=== PATIENT | male | born 1975 | race Caucasian/White ===

== ENCOUNTER 2017-08-02 11:38 | Outpatient (CLI) ==
[2016-06-02 19:48] VITALS: BMI 27.7
== END 2017-08-02 11:39 | disposition home or self-care (01) ==
LOC: LAB 11:38
PROVIDERS: ATTEND Nurse Practitioner Family
DX: Z00.00 Encounter for general adult medical examination without abnormal findings (principal)
CPT/HCPCS: 36415; 80053; 80061; 84443; 85025

== ENCOUNTER 2017-08-12 09:09 | Outpatient (CLI) | payer OTHER ==
[2016-06-02 19:48] VITALS: BMI 27.7
--- NOTE | 2017-08-12 09:42 | CT ---
EXAM: CT cervical spine without contrast. HISTORY: Neck pain. COMPARISON: Radiograph 09/29/2011. MRI 10/06/2011. TECHNIQUE: Multiple axial images of the cervical spine were obtained without intravenous contrast. Images were reformatted in the sagittal and coronal planes. FINDINGS: There is normal curvature and alignment. Vertebral body and intervertebral disc heights a re maintained. No fracture or subluxation is seen. C1-2: Atlantoaxial interval narrowing with associated spurring. C2-3: Facet arthropathy with mild right neural foraminal narrowing. C3-4: Facet arthropathy with mild right neural foraminal narrowing. C4-5: Uncovertebral hypertrophy and facet arthropathy with mild to moderate right neural foraminal n arrowing. C5-6: Disc osteophyte formation, facet arthropathy and uncovertebral hypertrophy with flattening of the ventral thecal sac and mild to moderate right and moderate to severe left neural foraminal narrow ing. C6-7: Disc osteophyte formation, uncovertebral hypertrophy and facet arthropathy with mild left neur al foraminal narrowing. C7-T1: No neural compromise. Paravertebral soft tissues are without acute abnormality. Moderate paranasal sinus mucosal disease i s incompletely imaged. IMPRESSION: Multilevel degenerative changes, greatest at C5-6.
--- NOTE | 2017-08-12 13:22 | MRI ---
EXAM: MRI lumbar spine without IV contrast. DATE: 12 August 2017. HISTORY: Low back pain. Dorsaligia. TECHNIQUE: Sagittal and axial T1W and T2W sequences of the lumbar spine along with sagittal IR and c oronal T2 W sequences were obtained using 1.2 Jessica magnet. No IV contrast. COMPARISON: LS spine series 01/21/2015. MRI L-spine 08 Nov 2015. FINDINGS: There are five [id number] lumbar vertebra. There is no lumbar scoliosis. A 2 mm ant erior subluxation of S1 relative to L5 is noted. No other subluxation, acute fracture, osseous malig jose martin, or pars interarticularis defect is demonstrated. The lumbar vertebra are normal in height. B one marrow signal is overall normal, except for minor degenerative endplate changes. Tiny osteophyte s are visible at several lumbar vertebra. Disc desiccation and minor disc space narrowing are detect ed at L4-5. Remaining intervertebral discs are normal in height. No acute sacral fracture or stress reaction is evident. SI joints are unremarkable. Conus medullaris terminates at L1 inferior endpla te. Visible spinal cord reveals no syrinx, cord edema, myelomalacia, or neoplasm. No retroperitoneal lymphadenopathy, paraspinal mass, or aortic aneurysm is detected. Paraspinal musc ulature is symmetric bilaterally. Visible portions of the liver, spleen, adrenal glands and kidneys are normal. Segmental analysis: T11-12: Normal. T12-L1: Normal. L1-2: Normal. L2-3: Normal. L3-4: Minimal bilateral foraminal to far lateral disc bulge causes slight bilateral inferior foramin al encroachment. No central canal stenosis. L4-5: Minor posterior to foraminal disc bulge and mild facet arthropathy cause triangulation of the canal and slight bilateral inferior foraminal encroachment. L5-S1: Minor anterolisthesis of S1, small concentric disc bulge, and minor facet arthropathy cause m ild/moderate narrowing at the opening to each foramen. Each L5 nerve root contacts the disc bulge ne ar the foramen. No central canal stenosis. IMPRESSIONS: 1. Lumbar spine minor spondylosis, minor/mild facet arthropathy, and minor DDD. 2. Multilevel foraminal narrowing, especially L5-S1. Each L5 nerve root contacts the disc bulge mily r the foramen, and could be sources for pain/radiculopathy 3. 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
== END 2017-08-12 09:10 | disposition home or self-care (01) ==
LOC: RAD 09:09
PROVIDERS: ATTEND Nurse Practitioner Family
DX: M54.9 Dorsalgia, unspecified (principal); G89.29 Other chronic pain; M54.31 Sciatica, right side; M99.83 Other biomechanical lesions of lumbar region; M54.2 Cervicalgia